=== PATIENT | female | born 1935 | race Caucasian/White ===

== ENCOUNTER 2022-11-13 17:22 | Emergency (ER) | payer MEDICARE, OTHER ==
[~2022-11-13] VITALS: Ht 165.1 cm; Wt 81.6 kg
[2022-11-13] MEDS ORDERED: LISINOPRIL (17:40)
[2022-11-13] MEDS ORDERED: FURO20TA90 (17:40)
--- NOTE | 2022-11-13 17:48 | NUR ---
Patient taken for CT scan.
--- NOTE | 2022-11-13 17:56 | NUR ---
Patient back from CT scan.
--- NOTE | 2022-11-13 19:19 | NUR ---
Gave report to MARILEE Alford
--- NOTE | 2022-11-13 19:33 | NUR ---
Recieved report from Lela HUNT.
--- NOTE | 2022-11-13 20:15 | NUR ---
Patient's grandson came to pick her up. Patient states that she is too weak to walk or transfer herself to wheelchair.
--- NOTE | 2022-11-13 20:34 | NUR ---
Dr. Lomeli in room with grandson and patient.
--- NOTE | 2022-11-13 21:49 | NUR ---
[facility] called and spoke to Jt for clinicals. Labs and COVID still pending stated that I would call her back when labs and COVID are resulted.
[2022-11-13 21:53] LABS: HEMATOCRIT 37.2 % (31.2-41.9); MEAN CORPUSCULAR VOLUME 92.5 fL (75.5-95.3); PLATELET COUNT (AUTO) 163 K/uL (179-408)
[2022-11-13 22:12] LABS: CARBON DIOXIDE 27 mmol/L (21-32); CHLORIDE 107 mmol/L (98-107); CREATININE 0.9 mg/dL (0.6-1.3); GLUCOSE 114 mg/dL (74-106); POTASSIUM 4.2 mmol/L (3.5-5.1); UREA NITROGEN, BLOOD 39 mg/dL (7-18)
[2022-11-13 22:20] LABS: ALANINE AMINOTRANSFERASE 24 U/L (14-59); ALKALINE PHOSPHATASE 101 U/L (50-136); ASPARTATE AMINOTRANSFERASE 17 U/L (15-37); BILIRUBIN,DIRECT 0.1 mg/dL (0.0-0.2); BILIRUBIN,TOTAL 0.2 mg/dL (0.2-1.0); TOTAL PROTEIN, SERUM 7.1 g/dL (6.4-8.2)
[2022-11-13 22:23] LABS: THYROID STIMULATING HORMONE 1.402 mIU/mL (0.358-3.740)
[2022-11-14] MEDS ORDERED: OLANZAPINE 10 MG VIAL IM ONE ×2 (05:37→05:45)
[2022-11-14] MEDS ORDERED: OXYCODONE/APAP 5-325 MG TABLET ONE (05:44)
[2022-11-14] MEDS ORDERED: OXYCODONE/APAP 5-325 MG TABLET PO ONE (05:45)
[2022-11-14] MEDS ORDERED: LORAZEPAM 0.5 MG TABLET PO PRN (07:00)
--- NOTE | 2022-11-14 07:11 | NUR ---
Gave report to Dennys HUNT.
--- NOTE | 2022-11-14 07:15 | NUR ---
Received report from previous shift. Pt. to be transferred to [facility], Rm. [address] Neves. [phone] for report. [place] to pick up operator pt. approx. [phone].
[2022-11-14] MEDS ORDERED: LORAZEPAM 1 MG TABLET ONE (08:24)
--- NOTE | 2022-11-14 08:45 | NUR ---
Assisted pt to chair. Gave pt breakfast tray.
--- NOTE | 2022-11-14 08:51 | NUR ---
Called report to MARILEE Rizzo, at [facility].
--- NOTE | 2022-11-14 10:04 | NUR ---
[facility] has been rescheduled for fruit or nut picker at 1045. electrical maintenance supervisor confirmed with Aaron Vidal. [facility]blance may have misplaced dispatch slip -- no ambulance showed at ETA time
--- NOTE | 2022-11-14 10:11 | NUR ---
Assisted pt back into bed, at her request.
--- NOTE | 2022-11-14 10:46 | NUR ---
Gave finish machine tender report and pt. chart. Pt transported to [facility].
== END 2022-11-14 10:55 | disposition short-term general hospital (02) ==
LOC: ER 17:22
DX: R53.1 Weakness (principal); S00.83XA Contusion of other part of head, initial encounter; W01.198A Fall on same level from slipping, tripping and stumbling with subsequent striking against other object, initial encounter; Y92.000 Kitchen of unspecified non-institutional (private) residence as the place of occurrence of the external cause; R29.6 Repeated falls; F03.90 Unspecified dementia, unspecified severity, without behavioral disturbance, psychotic disturbance, mood disturbance, and anxiety; G89.29 Other chronic pain; M25.562 Pain in left knee; M25.561 Pain in right knee; I11.0 Hypertensive heart disease with heart failure; I50.9 Heart failure, unspecified; Z79.899 Other long term (current) drug therapy; R94.31 Abnormal electrocardiogram [ECG] [EKG]; Z20.822 Contact with and (suspected) exposure to COVID-19
CPT/HCPCS: 36415; 70450; 71045; 84443; 84484; 85025; 93005; A4663; J2358